=== PATIENT | male | born 1980 | race African-American/Black ===

== ENCOUNTER 2016-05-13 09:18 | Emergency (ER) | payer OTHER ==
[~2016-05-13] VITALS: Ht 182.9 cm; Wt 97.5 kg
--- NOTE | 2016-05-13 10:09 | NUR ---
MSE COMPLETED. PT D/C'D HOME, ACI/RX X1 GIVEN. PT AMBULATED W/O DIFF/TOOK ALL BELONGINGS.
[2016-05-13 10:10] VITALS: BP 122/66
== END 2016-05-13 10:11 | disposition home or self-care (01) ==
LOC: ER 09:18
DX: Z48.01 Encounter for change or removal of surgical wound dressing (principal); M79.89 Other specified soft tissue disorders
CPT/HCPCS: 99283; A4663